=== PATIENT | female | born 1970 ===

== ENCOUNTER 2018-06-30 11:34 | Emergency (ER) | payer BC, OTHER ==
[2018-06-30 11:49] VITALS: BMI 48.6
[2018-06-30] MEDS ORDERED: Piperacillin/Tazobact 3.375 GM in Sodium Chloride 0.9% 100 ML IVPB STA (12:34)
[2018-06-30] MEDS ORDERED: Insulin Regular 100 units/ml IVP STA (12:36)
[2018-06-30] MEDS ORDERED: Sodium Chloride 0.9% 1,000 ML IV STA (12:36)
--- NOTE | 2018-06-30 13:00 | ED PDOC ---
HPI: Female Pain Time Seen by Provider: 06/30/18 12:18 Chief Complaint (Nursing): Female Genitourinary Chief Complaint (Provider): Female Genitourinary History Per: Patient, Repairer Cylinder Heads (Neighbor Luke. Voice music promoter offered and patient refused, stating her neighbor can interpret) History/Exam Limitations: no limitations Onset/Duration Of Symptoms: Other (3 weeks) Current Symptoms Are (Timing): Still Present Quality Of Discomfort: "Pain" Associated Symptoms: denies: Fever, Urinary Symptoms Additional Complaint(s): 48 year old female presents to the ER for an evaluation of multiple painful bumps on pelvis area onset for 3 weeks. Of note, patient reports she shaved the area 2 weeks ago. She states she has elevated sugar levels but is not diagnosed with diabetes or on any medication. Denies fever, antipyretic use, dysuria or hematuria. PMD: Non [facility] Provider Abnormal Vaginal Bleeding: No Past Medical History Reviewed: Historical Data, Nursing Documentation, Vital Signs Vital Signs: Last Vital Signs Temp 98.3 F 06/30/18 11:51 Pulse 92 H 06/30/18 11:51 Resp 20 06/30/18 11:51 BP 141/84 06/30/18 11:51 Pulse Ox 98 06/30/18 11:51 - Medical History PMH: No Chronic Diseases - Surgical History Surgical History: Appendectomy, Cholecystectomy - Family History Family History: States: Unknown Family Hx - Home Medications Home Medications: Ambulatory Orders Medication Instructions Recorded Ibuprofen [Motrin] 600 mg PO TID PRN #30 tab 09/16/16 Levofloxacin [Levaquin] 750 mg PO DAILY #7 tablet 09/16/16 Triamcinolone Acetonide [Nasacort 1 spray NS DAILY #1 unit 09/16/16 Allergy 24Hr] Cephalexin [cephalexin] 500 mg PO Q6 #28 cap 06/30/18 RX: metFORMIN [glucOPHAGE] 500 mg PO BID #14 tab 06/30/18 Sulfamethoxazole/Trimethoprim 2 tab PO BID #28 tab 06/30/18 [Bactrim DS 800 mg-160 mg] - Allergies Allergies/Adverse Reactions: Allergies Allergy/AdvReac Type Severity Reaction Status Date / Time No Known Allergies Allergy Verified 02/13/16 08:57 Review of Systems ROS Statement: Except As Marked, All Systems Reviewed And Found Negative Constitutional: Negative for: Fever Genitourinary Female: Positive for: Pelvic Pain. Negative for: Dysuria, Frequency, Incontinence, Hematuria Physical Exam - Reviewed Nursing Documentation Reviewed: Yes Vital Signs Reviewed: Yes - Physical Exam Appears: Positive for: Well, Non-toxic, No Acute Distress Head Exam: Positive for: ATRAUMATIC, NORMAL INSPECTION, NORMOCEPHALIC Skin: Positive for: Normal Color, Warm, Dry Eye Exam: Positive for: Normal appearance Cardiovascular/Chest: Positive for: Regular Rate, Rhythm. Negative for: Murmur Respiratory: Positive for: Normal Breath Sounds. Negative for: Decreased Breath Sounds, Wheezing, Respiratory Distress Pelvic Exam: Positive for: Other (transit manager Martina). Negative for: External Exam Normal (3 erythematous papules with surrounding erythema, no induration or fluctuance) Neurologic/Psych: Positive for: Alert, Oriented (x3). Negative for: Motor/Sensory Deficits - Laboratory Results Result Diagrams: 06/30/18 13:20 06/30/18 13:20 - ECG O2 Sat by Pulse Oximetry: 98 (RA) Pulse Ox Interpretation: Normal Medical Decision Making Medical Decision Making: Time: 1234 Initial Plan: CMP ED Urine ED Urine Dipstick CBC w/ Differential Glucose, POC HimuLIN R 8units Normal Saline 1000 mls/hr Vancomycin Inj Zosyn 3.375gm Blood Culture IV Insertion Finger Stick Urinalysis Reevaluation Repeat FSBS < 300. Case d/w Dr. Castle who agrees with plan and disposition and recommends Metformin 500mg PO BID. Pt. informed of plan and agrees. Scribe Attestation: Documented by Haydee Augustine, acting as a scribe for Bryan Haile PA-C Provider Scribe Attestation: All medical record entries made by the Scribe were at my direction and personally dictated by me. I have reviewed the chart and agree that the record accurately reflects my personal performance of the history, physical exam, medical decision making, and the department course for this patient. I have also personally directed, reviewed, and agree with the discharge instructions and disposition. Disposition - Clinical Impression Clinical Impression: Diabetes, Folliculitis - Patient ED Disposition Is Patient to be Admitted: No - Disposition Referrals: [facility] [Outside] Disposition: Routine/Home Disposition Time: 15:33 Condition: IMPROVED Additional Instructions: FOLLOW UP WITH [facility] TOMORROW WITHOUT FAIL ENRIKE SOSA, thank you for letting us take care of you today. Your provider was Jabier Gunn MD and you were treated for FEMALE GENITOURINARY. The emergency medical care you received today was directed at your acute symptoms. If you were prescribed any medication, please fill it and take as directed. It may take several days for your symptoms to resolve. Return to the Emergency Department if your symptoms worsen, do not improve, or if you have any other problems. Please contact your doctor or call one of the physicians/clinics you have been referred to that are listed on the Patient Visit Information form that is included in your discharge packet. Bring any paperwork you were given at discharge with you along with any medications you are taking to your follow up visit. Our treatment cannot replace ongoing medical care by a primary care provider outside of the emergency department. Thank you for allowing the [facility] team to be part of your care today. If you had an X-Ray or CT scan: A Radiologist will review the ED reading if any change in treatment is needed we will contact you. If you had a blood, urine, or wound culture: It will take several days for the results, if any change in treatment is needed we will contact you. If you had an STI test: It will take 48 hours for the results. Please call after 1 week if you have not heard back. Prescriptions: Cephalexin [cephalexin] 500 mg PO Q6 #28 cap RX: metFORMIN [glucOPHAGE] 500 mg PO BID #14 tab Sulfamethoxazole/Trimethoprim [Bactrim DS 800 mg-160 mg] 2 tab PO BID #28 tab Instructions: Folliculitis (DC), Diabetes Type 2 (DC), Diabetes and Diet Forms: [employer] ([place]ish), [facility] ED School/Work Excuse Print Language: GHANAIAN
[2018-06-30] MEDS ORDERED: Piperacillin/Tazobact 3.375 gm Inj IVPB ONE (13:11)
[2018-06-30] MEDS ORDERED: Vancomycin 1 g Inj ONE (13:11)
[2018-06-30 13:45] LABS: BASO % 0.7 % (0.0-2.0); EOS # 0.2 K/uL (0.0-0.7); EOS % 2.6 % (0.0-4.0); HEMOGLOBIN 12.6 g/dL (12.0-16.0); LYMPH # 2.2 K/uL (1.0-4.3); LYMPH % 33.2 % (20.0-40.0); MEAN CELL VOLUME 88.8 fl (81.0-99.0); MEAN CORPUSCULAR HEMOGLOBIN 28.2 pg (27.0-31.0); MEAN CORPUSCULAR HGB CONC 31.8 g/dL (33.0-37.0); MEAN PLATELET VOLUME 10.8 fl (7.2-11.7); MONO # 0.5 K/uL (0.0-0.8); MONO % 7.8 % (0.0-10.0); NEUT # 3.6 K/uL (1.8-7.0); NEUT % 55.7 % (50.0-75.0); NRBC % 0.1 % (0.0-0.0); RBC 4.48 Mil/uL (3.80-5.20); RED CELL DISTRIBUTION WIDTH 14.6 % (11.5-14.5); WHITE BLOOD COUNT 6.5 K/uL (4.8-10.8)
[2018-06-30 13:46] LABS: SQUAMOUS EPITHIAL 1 /hpf (0-5); URINE BACTERIA RARE (<OCC); URINE BILIRUBIN NEGATIVE (NEGATIVE); URINE BLOOD SMALL (NEGATIVE); URINE CLARITY SLIGHTY-CLOUDY (Clear); URINE COLOR STRAW (YELLOW); URINE GLUCOSE (UA) >=500 mg/dL (Normal); URINE LEUKOCYTE ESTERASE SMALL Leu/uL (Negative); URINE PROTEIN NEGATIVE (NEGATIVE); URINE UROBILINOGEN 0.2-1.0 mg/dL (0.2-1.0)
[2018-06-30 14:08] LABS: ALBUMIN 4.1 g/dL (3.5-5.0); ALT/SGPT 498 U/L (9-52); AST/SGOT 668 U/L (14-36); BLOOD UREA NITROGEN 9 mg/dl (7-17); CALCIUM 9.7 mg/dL (8.4-10.2); GFR NON-AFRICAN AMERICAN > 60
[2018-06-30 16:03] VITALS: BP 127/78; PULSE 84; RESP 17; TEMP 98.5
[2018-07-01 11:13] VITALS: O2SAT 98
== END 2018-06-30 16:03 | disposition home or self-care (01) ==
LOC: H.ER 11:34
DX: L73.9 Follicular disorder, unspecified (principal); E11.9 Type 2 diabetes mellitus without complications; Z79.84 Long term (current) use of oral hypoglycemic drugs
CPT/HCPCS: 80053; 81003; 82948; 85025; 87040; 96374; 99284; J2543; J7030